=== PATIENT | female | born 1930 | race Caucasian/White ===

== ENCOUNTER 2019-03-21 14:02 | Emergency (ER) | payer OTHER ==
[~2019-03-21] VITALS: Ht 167.6 cm; Wt 74.8 kg
[~2019-03-21 14:02] MED LIST: ACETAMINOPHEN-1 EAC1 PO; ALEVE220 MG PO; ALIGN4 MG; ALLOPURINOL 10100 M3 PO; AMBIEN 5 MG TABL5 M1 PO; ANASPAZ0.125 MG; COLACE 100 MG100 MG PO; COLCHICINE 0.60.6 M1; ELIQUIS2.5 MG PO; HYDROCODON-ACE1 EAC7 PO; LEVOTHYROXIN0.112 M1 PO; METAMUCIL1 EAC1 PO; MILK OF MA2400 MG/10 PO; NEURONTIN 300300 M1 PO; NEXIUM40 MG; OXYCODONE HCL 55 MG PO; PROTONIX40 M1 PO; SERTRALINE HCL100 MG PO; SERTRALINE HCL50 MG PO; SIMVASTATIN40 MG PO; SYNTHROID112 MCG PO; VAGIFEM10 MCG VG; YUVAFEM10 MCG VAG; ZOFRAN ODT4 MG PO
[2019-03-21] MEDS ORDERED: NEXIUM40 MG PO (14:15)
[2019-03-21] MEDS ORDERED: VAGIFEM10 MCG (14:16)
[2019-03-21 15:38] VITALS: BP 123/75
== END 2019-03-21 15:38 | disposition home or self-care (01) ==
LOC: M.ERS 14:02
DX: R04.0 Epistaxis (principal)

== ENCOUNTER → 2019-09-03 | Outpatient (CLI) | payer OTHER ==
[~2019-09-03] MED LIST changes: +NEXIUM40 MG PO; +VAGIFEM10 MCG
== END ==
LOC: M.RAD 15:28
DX: M25.512 Pain in left shoulder (principal); G89.29 Other chronic pain

== ENCOUNTER → 2019-09-22 | Outpatient (CLI) | payer OTHER | LOC: M.RAD 16:49 | DX: J84.10 Pulmonary fibrosis, unspecified (principal); R50.9 Fever, unspecified; R05 Cough ==

== ENCOUNTER → 2019-12-29 | Outpatient (CLI) | payer MEDICARE | LOC: M.RAD 15:38 | DX: J98.11 Atelectasis (principal) ==

== ENCOUNTER → 2020-01-14 | Outpatient (CLI) | payer MEDICARE | LOC: M.CT 01-13 11:00 | DX: K57.30 Diverticulosis of large intestine without perforation or abscess without bleeding (principal); I71.4 Abdominal aortic aneurysm, without rupture; J84.10 Pulmonary fibrosis, unspecified; J43.8 Other emphysema ==

== ENCOUNTER 2021-05-04 12:42 | Observation (INO) | payer MEDICARE ==
[~2021-05-04] VITALS: Ht 167.6 cm; Wt 83.3 kg
[~2021-05-04 12:42] MED LIST changes: +LEVOTHYROXINE100 MC2 PO; -NEURONTIN 300300 M1 PO; +NEURONTIN 300M300 M2 PO; -SERTRALINE HCL50 MG PO; -SYNTHROID112 MCG PO; +ZOLOFT100 MG PO
[2021-05-04 12:47] VITALS: BP 135/80
[2021-05-04 13:17] LABS: ABSOLUTE LYMPHOCYTES 0.2 thou/uL (0.8-5.3); ABSOLUTE MONOCYTES 0.6 thou/uL (0.0-1.2); ABSOLUTE NEUTROPHILS 3.4 thou/uL (1.6-8.1); BASOPHILS 0.7 %; EOSINOPHILS 1.1 %; HEMATOCRIT 41.4 % (37.0-47.0); HEMOGLOBIN 13.7 gm/dL (12.0-15.0); LYMPHOCYTES 5.4 %; MCH 28.5 pg (26.0-34.0); MCHC 33.2 g/dL (28.0-37.0); MCV 85.8 fL (80.0-100.0); MONOCYTES 13.6 %; MPV 8.3 fl. (7.2-11.1); NUCLEATED RBCS 0 /100WBC; PLATELET COUNT* 69 thou/uL (150-400); POLYS 79.2 %; RBC 4.82 mil/uL (4.20-5.00); RDW-CV 20.2 % (10.5-14.5); WBC 4.3 thou/uL (4.0-11.0)
[2021-05-04 13:32] LABS: CALCIUM 8.9 mg/dL (8.5-10.1); CREATININE 1.3 mg/dL (0.6-1.3)
[2021-05-04 13:36] LABS: ALBUMIN 3.6 g/dL (3.4-5.0); TOTAL BILIRUBIN 0.5 mg/dL (<0.1-1.0); TOTAL PROTEIN 7.7 g/dL (6.4-8.2)
--- NOTE | 2021-05-04 14:19 | EKG ---
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 : 1930 Requested By: Roger Bryant Order Number: [id number] MD: Mathew Haider Measurements Intervals [place] Rate: 83 P: 33 DC: 215 QRS: -47 QRSD: 109 T: 84 QT: 383 QTc: 450 Interpretive Statements Sinus rhythm Borderline prolonged DC interval Incomplete RBBB and LAFB Compared to ECG 09/05/2017 09:10:23 Sinus arrhythmia no longer present Electronically Signed On 05-04-2021 14:19:37 CDT by Mathew Haider [email or web address] <ELECTRONICALLY SIGNED> By: Mathew Haider MD, [facility] 05/04/21 1419 1344 1344 Mathew Haider MD, [facility] /EPI
[2021-05-04 14:41] LABS: URINE BILIRUBIN NEGATIVE (Negative); URINE BLOOD 1+ (Negative); URINE CLARITY CLEAR; URINE COLOR YELLOW; URINE GLUCOSE-RANDOM NEGATIVE (Negative); URINE KETONES NEGATIVE (Negative); URINE LEUKOCYTES-REFLEX NEGATIVE (Negative); URINE NITRITE-REFLEX NEGATIVE (Negative); URINE PROTEIN 2+ (Negative); URINE UROBILINOGEN 0.2 E.U./dl (0.2-1.0)
[2021-05-04 14:49] LABS: BACTERIA-REFLEX 1-9 Few /HPF (None Seen); CASTS None Seen /LPF (None Seen); CRYSTALS None Seen /LPF (None Seen); MUCUS None Seen strn/LPF (None Seen); SQUAMOUS 0-3 Few /LPF (0-3); URINE RBC 3-10 Few /HPF (0-2); URINE WBC-REFLEX 0-5 Rare /HPF (0-5)
[2021-05-04 15:35] VITALS: BP 121/61
[2021-05-04 16:08] VITALS: BP 96/46
[2021-05-04] MEDS ORDERED: LEVO-T25 MCG PO (16:43)
[2021-05-04] MEDS ORDERED: CLOBETASOL 0.0560 GM TOP (16:46)
[2021-05-04] MEDS ORDERED: VITAMIN B-121000 MC2 PO (16:49)
[2021-05-04] MEDS ORDERED: VITAMIN D250 MC1 PO (16:50)
[2021-05-04] MEDS ORDERED: MYRBETRIQ25 MG PO (16:52)
--- NOTE | 2021-05-04 17:01 | NUR ---
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
--- NOTE | 2021-05-04 17:14 | 2DMMODE ---
[place] [address] 2 D/M-MODE ECHOCARDIOGRAM Name: JUSTIN LUGO Room: [address] IN [facility]#: [id number] Admission: 05/04/21 Attend Phys: Porsche Strange, Discharge: Date of : 34 Date of Service: 05/04/21 1714 Report #: [id number] THIS REPORT FOR: cc: Roro Solorzano MD, Sarah Beth MD Liston, Michael J. MD [facility] ~ APPROVED REPORT Study performed: 05/04/2021 16:15:28 EXAM: Comprehensive 2D, Doppler, and color-flow Echocardiogram Patient Location: In-Patient Room #: 203 Status: routine BSA: 1.89 HR: 61 bpm BP: 121/61 mmHg Rhythm: NSR Other Information Study Quality: Good Indications Elevated Troponin 2D Dimensions IVSd: 10.87 (7-11mm) LVOT Diam: 20.70 (18-24mm) LVDd: 42.79 mm PWd: 10.87 (7-11mm) Ascending Ao: 33.82 (22-36mm) LVDs: 27.90 (25-40mm) Aortic Root: 33.42 mm Volumes Left Atrial Volume (Systole) LA ESV Index: 26.10 mL/m2 Aortic Valve AoV Peak Low.: 1.73 m/s AO Peak Gr.: 11.96 mmHg LVOT Max P.97 mmHg AO Mean Gr.: 6.37 mmHg LVOT Mean P.44 mmHg LVOT Max V: 1.41 m/s AO V2 VTI: 30.21 cm LVOT Mean V: 0.99 m/s AFTAB (VTI): 3.13 cm2 LVOT V1 VTI: 28.11 [place] [address] 2 D/M-MODE ECHOCARDIOGRAM Name: JUSTIN LUGO Room: [address] IN ..#: [id number] Admission: 05/04/21 Attend Phys: Porsche Strange, Discharge: Date of : 34 Date of Service: 05/04/21 1714 Report #: [id number] Mitral Valve E/A Ratio: 0.48 MV Decel. Time: 281.70 ms MV E Max Olw.: 0.47 m/s MV PHT: 81.69 ms MVA (PHT): 2.69 cm2 TDI E/Lateral E': 4.70 E/Medial E': 5.22 Medial E' Low.: 0.09 m/s Lateral E' Low.: 0.10 m/s Pulmonary Valve PV Peak Low.: 1.06 m/s PV Peak Gr.: 4.47 mmHg Tricuspid Valve RAP Estimate: 5.00 mmHg TR Peak Gr.: 18.51 mmHg RVSP: 23.00 mmHg PA Pressure: 23.00 mmHg Left Ventricle The left ventricle is normal size. There is normal LV segmental wall motion. There is normal left ventricular wall thickness. Left ventricular systolic function is normal. LVEF is 60-65%. Grade I - abnormal relaxation pattern. Right Ventricle The right ventricle is normal size. The right ventricular systolic function is normal. Atria Left atrium is mildly dilated. The right atrium size is normal. Aortic Valve Mild aortic valve sclerosis. Trace aortic regurgitation. There is no aortic valvular stenosis. Mitral Valve There is mitral annular calcification. There is no mitral valve regurgitation noted. No evidence of mitral valve stenosis. Tricuspid Valve The tricuspid valve is normal in structure. Trace tricuspid regurgitation[place] [address] 2 D/M-MODE ECHOCARDIOGRAM Name: JUSTIN LUGO Room: [address]#: [id number] Admission: 05/04/21 Attend Phys: Porsche Strange, Discharge: Date of : 34 Date of Service: 05/04/21 1714 Report #: [id number] Pulmonic Valve The pulmonary valve is normal in structure. There is no pulmonic valvular regurgitation. Great Vessels The aortic root is normal in size. IVC is normal in size and collapses >50% with inspiration. Pericardium There is no pericardial effusion. <Conclusion> The left ventricle is normal size. There is normal left ventricular wall thickness. Left ventricular systolic function is normal. LVEF is 60-65%. Grade I - abnormal relaxation pattern. There is normal LV segmental wall motion. Left atrium is mildly dilated. Mild aortic valve sclerosis. Trace aortic regurgitation. There is no aortic valvular stenosis. Trace tricuspid regurgitation. No pulmonary hypertension. <ELECTRONICALLY SIGNED> By: Ivan Gutierrez MD, FACC 05/04/211713 13 13 Ivan Gutierrez MD, FACC /INF
[2021-05-04 20:00] VITALS: BP 92/56
[2021-05-04] MEDS ORDERED: HYDROCODON-ACE1 EAC7 PO (23:18)
[2021-05-05 00:16] VITALS: BP 111/47
[2021-05-05 04:00] VITALS: BP 135/62
--- NOTE | 2021-05-05 06:15 | NUR ---
Alert and oriented x4. She is up with assist x 1 to the bathroom. O2 sat on room air has been 92-98% Skin is intact. She is having generalized pain awaiting return call from
[2021-05-05 08:00] VITALS: BP 120/62
[2021-05-05 11:00] LABS: HEMATOCRIT 36.4 % (37.0-47.0); HEMOGLOBIN 11.9 gm/dL (12.0-15.0); MCH 28.5 pg (26.0-34.0); MCHC 32.7 g/dL (28.0-37.0); MCV 87.2 fL (80.0-100.0); MPV 8.2 fl. (7.2-11.1); RBC 4.18 mil/uL (4.20-5.00); WBC 3.9 thou/uL (4.0-11.0)
[2021-05-05 11:11] LABS: CALCIUM 8.1 mg/dL (8.5-10.1); CREATININE 1.2 mg/dL (0.6-1.3)
[2021-05-05 12:00] VITALS: BP 101/53
--- NOTE | 2021-05-05 12:29 | NUR ---
ASSUMED CARE OF PATIENT THIS AM AT 0730. PATIENT IS ALERT AND ORIENTED X 4. SHE DENIES PAIN THIS AM. DR IN TO ROUND AND DISCHARGE ORDERS WERE WRITTEN. PATIENT WAS INCONTINENT OF A LIQUID STOOL THIS AM. TELE SHOWS SINUS ARRYTHMIA. NO C/O CHEST PAIN NAUSEA OR VOMITING.
[2021-05-05 13:36] VITALS: BP 101/53
--- NOTE | 2021-05-05 15:10 | NUR ---
Pt is A&O. Resides at home with dtr. Independent. No o2. Pt has a cane but does not use it. Hx of HH and SNF post hip. Pt was at [facility]. Goal is home at ut, no needs anticipated. DC today
== END 2021-05-05 15:39 | disposition home or self-care (01) ==
LOC: M.ERS 12:42 → M.2W 14:12 → M.TBA-ER 14:12 → M.2W 14:12
PROVIDERS: Family Medicine; Physician Assistant; ADMIT Internal Medicine; ATTEND Internal Medicine
DX: J69.0 Pneumonitis due to inhalation of food and vomit (principal); J84.10 Pulmonary fibrosis, unspecified; K56.41 Fecal impaction; Z20.822 Contact with and (suspected) exposure to COVID-19; R74.8 Abnormal levels of other serum enzymes; R11.2 Nausea with vomiting, unspecified; K21.9 Gastro-esophageal reflux disease without esophagitis; E78.5 Hyperlipidemia, unspecified; E03.9 Hypothyroidism, unspecified; R53.81 Other malaise; R53.83 Other fatigue; R53.1 Weakness; Z79.899 Other long term (current) drug therapy